=== PATIENT | female | born 1975 | race Caucasian/White ===

== ENCOUNTER 2017-05-22 15:30 | Emergency (ER) | payer OTHER ==
[~2017-05-22] VITALS: Ht 160 cm; Wt 70.0 kg
[~2017-05-22 15:30] MED LIST: CYCL5TAB PO; DOXY100T PO; KETO10 PO; MECL25 PO; MECL25CH PO; MEDR4PAK3 PO; OXYC-360 PO; POTA-243 PO; TRAM50 PO; TUSSSUS PO; Z.0.NO CURRENT MEDS
[2017-05-22 15:32] VITALS: BP 119/77; PULSE 85; RESP 16; TEMP 98.6; O2SAT 96
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
[2017-05-22] MEDS ORDERED: IBUP800T23 PO (17:06)
[2017-05-22] MEDS ORDERED: ROBA500T PO (17:06)
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
== END 2017-05-22 17:21 | disposition home or self-care (01) ==
LOC: NEPK 15:30
DX: R51 Headache (principal); M54.2 Cervicalgia; M79.601 Pain in right arm; M54.6 Pain in thoracic spine; V89.2XXA Person injured in unspecified motor-vehicle accident, traffic, initial encounter; Y92.481 Parking lot as the place of occurrence of the external cause
CPT/HCPCS: 99283